=== PATIENT | male | born 1985 | race Caucasian/White ===

== ENCOUNTER 2018-10-16 09:26 | Outpatient (RCR) | payer MEDICARE ==
--- NOTE | 2018-10-15 08:41 | NUR ---
10/12/18 Patient in today for Treatment team. Pt presents clean and neat, alert and oriented x 4. Pt in a bright mood. Pt states he is now seeing psychiatrist Dr Adkins in [facility]. He states she has increased hit [place] to 1200mg daily and his Gabapentin to 600mg. pt denies any suicidal thoughts at this time. Pt will continue with IOP 3x/week. Pt to follow up in one month. Treatment team concluded.
[~2018-10-16 09:26] MED LIST: GABAPENTIN600 MG PO; LITHIUM CARB300 M2 PO; LITHIUM CARB600 MG PO; NEURONTIN300 MG PO; TRAZODONE100 MG PO; XANAX1 MG PO
[2018-10-26] MEDS ORDERED: LAMICTAL25 M2 PO (12:28)
== END 2018-10-18 23:59 | disposition home or self-care (01) ==
LOC: PATHWAYS 09:26
PROVIDERS: ATTEND Specialist
DX: F31.60 Bipolar disorder, current episode mixed, unspecified (principal); F41.1 Generalized anxiety disorder; F40.10 Social phobia, unspecified; F41.0 Panic disorder [episodic paroxysmal anxiety]